=== PATIENT | male | born 1990 | race Caucasian/White ===

== ENCOUNTER 2016-10-21 11:17 | Emergency (ER) | payer OTHER ==
[~2016-10-21] VITALS: Ht 170.2 cm; Wt 65.4 kg
[2016-10-21 11:29] VITALS: Ht 170.2 cm; Wt 65.4 kg
[2016-10-21] MEDS ORDERED: CYAN100020 PO (13:18)
[2016-10-21] MEDS ORDERED: METHYLPREDNISOLONE 125 MG VIAL IV STA (13:53)
[2016-10-21] MEDS ORDERED: methylPREDNISolone 1000 MG in DEXTROSE 5% 250 ML IV SCH (13:53)
[2016-10-21 14:18] LABS: BASO % 0.5 %; BASO ABS # 0.03 K/uL (0-0.2); COMPLETE YES; EOS % 0.3 %; HEMATOCRIT 36.1 % (42-52); IG% 0.2 %; LYMPH % 12.2 %; LYMPH ABS # 0.78 K/uL (1.2-3.4); MEAN CELL VOLUME 75.2 fL (80-100); MEAN CORPUSCULAR HEMOGLOBIN 24.6 pg (25-34); MEAN CORPUSCULAR HGB CONC 32.7 g/dl (32-36); MEAN PLATELET VOLUME 10.1 fL (7.4-10.4); MONO % 5.9 %; NEUT % 80.9 %; PLATELET COUNT 317 K/uL (130-400); WHITE BLOOD COUNT 6.41 K/uL (4.8-10.8)
[2016-10-21 14:32] LABS: CALCIUM 10.1 mg/dl (8.5-10.1); CREATININE 1.1 mg/dl (0.60-1.40); POTASSIUM 4.1 mmol/L (3.5-5.1)
[2016-10-21] MEDS ORDERED: GADAVIST IV PRN (17:15)
--- NOTE | 2016-10-21 17:34 | DIAGNOSTIC IMAGING REPORT ---
BRAIN COMBO FOR MS CLINICAL HISTORY: Weakness. Fatigue. Multiple sclerosis. COMPARISON STUDY: MRI of the brain May 14, 2013. TECHNIQUE: Utilizing 1.5 Nataly magnet and dedicated coil, multiplanar, multi echo imaging of the brain was performed pre and postcontrast administration. Injection of 6.5 cc of Gadavist IV was uneventful. Study was performed as per the multiple sclerosis protocol. FINDINGS: There are no areas of restricted diffusion to suggest acute infarct. No acute intracranial hemorrhage, midline shift or mass effect is present. Ventricular system is normal. Basilar cisterns are patent. There are no extra-axial collections. There has been interval development of multiple T2 hyperintense foci since MRI of May 14, 2013. Multiple new plaques are noted, including a 1.6 cm left frontal lobe plaque in a 1.4 cm right frontal lobe plaque. Note is made of an enhancing plaque measuring approximately 8 mm within the splenium of the corpus callosum. There is also a 5 mm enhancing plaque within the right parietal lobe. Chondral signal is maintained. Orbits are unremarkable. IMPRESSION: Interval development of numerous plaques since MRI of May 14, 2013. Moderate progression of demyelinating disease since prior exam. 8 mm enhancing plaque within the splenium of the corpus callosum and 5 mm enhancing plaque within the right parietal lobe consistent with active demyelination. Electronically signed by: Jhonny Lassiter M.D. 10/21/2016 5:33 PM Dictated Date/Time: 10/21/2016 5:21 PM
[2016-10-21] MEDS ORDERED: METH4PAK PO (18:01)
[2016-10-21 18:26] VITALS: BP 110/61; PULSE 72; TEMP 37.4; O2SAT 100
--- NOTE | 2016-10-21 20:09 | EMERGENCY ROOM VISIT NOTE ---
History Report prepared by Julia: Neo Craven Under the Supervision of: Dr. Rajesh Saxena M.D. First contact with patient: 13:24 Chief Complaint: NEURO SYMPTOMS Stated Complaint: NUMBNESS, FATIGUE/ALL OVER BODY History of Present Illness The patient is a 26 year old male with multiple sclerosis who presents to the Emergency Room with complaints of persistent numbness that started 5 days ago. The patient was sent here from [facility]. He states that he stopped taking his multiple sclerosis medication (Gilenya) in May of 2014 because he did not feel comfortable taking it. The patient says that 5 days ago , he started having numbness in his right foot, and the next day, it progressed to his left foot and hands. The patient notes that it is not complete numbness, but it does not feel "right". He says that the numbness progressed into his abdomen. He adds that he can feel a "tight band" around his abdomen that wraps around his back, which started 5 days ago. The patient notes that he feels like he needs to constantly have a bowel movement, which is exacerbated when he urinates. He denies any urinary symptoms, however. He adds that he has had generalized weakness that is worsened with walking for the past 5 days as well. The patient did have a slight headache last night, which went away. He denies any shortness of breath, chest pain, fevers, or vision problems.The patient says that he was diagnosed with multiple sclerosis in 2007, and the symptom he had when he was diagnosed was left-sided numbness. He was diagnosed with an MRI and a spinal tap. MS does not run in his family. Source of History: patient Onset: 5 days ago Position: hand (bilateral), abdomen, leg (bilateral), foot (bilateral), other Quality: other ("numbness" - not complete numbness) Timing: other (persistent) Associated Symptoms: + headache (has since gone away), + weakness, No fevers , No chest pain, No SOB, No urinary symptoms Note: Associated symptoms: "Tight band" around abdomen that wraps around back. Constant feeling of needing to have bowel movement. Denies vision problems. Review of Systems See HPI for pertinent positives & negatives. A total of 10 systems reviewed and were otherwise negative. Past Medical & Surgical Medical Problems: (1) Multiple sclerosis Family History No pertinent family history Social History Smoking Status: Never Smoker Smokeless Tobacco Use: No Alcohol Use: none Marital Status: single Housing Status: lives alone Occupation Status: student Current/Historical Medications Scheduled Cyanocobalamin (Vitamin B12), 1,000 MCG PO DAILY Methylprednisolone (Medrol Dosepak), 1 PKT PO UD Allergies Coded Allergies: No Known Allergies (Unverified , 10/21/16) Physical Exam Vital Signs Date Time Temp Pulse Resp B/P (MAP) Pulse Ox O2 Delivery O2 Flow Rate FiO2 10/21/16 18:26 37.4 72 18 110/61 100 10/21/16 17:09 72 18 110/61 100 Room Air 10/21/16 15:16 76 18 109/58 100 Room Air 10/21/16 13:29 114/66 10/21/16 11:29 37.4 108 20 113/73 100 Room Air Physical Exam Constitutional: Vital signs reviewed. Eyes: Pupils are equal round reactive to light. Conjunctiva are noninjected. ENT: Pharynx is clear without erythema or exudate. Mucous membranes are moist. Neck supple without meningeal signs. Respiratory: Clear to auscultation bilaterally. Breath sounds are equal bilaterally. Cardiovascular: Regular rate and rhythm. No rubs or gallops. GI: Soft, nondistended and nontender. Bowel sounds are present. Musculoskeletal: No peripheral edema. No lower extremity tenderness. Integumentary: No cyanosis. Neurological: The patient is awake and alert. Cranial nerves II-XII are intact. Motor is 5 out of 5 all extremities. Sensation is intact to light touch all extremities. Dysesthesia to lower trunk, lower extremities bilaterally and finger tips. Psychiatric: Normal affect. Medical Decision & Procedures ER Provider Diagnostic Interpretation: MRI results as stated below per my review and radiologist interpretation. BRAIN COMBO FOR MS CLINICAL HISTORY: Weakness. Fatigue. Multiple sclerosis. COMPARISON STUDY: MRI of the brain May 14, 2013. TECHNIQUE: Utilizing 1.5 Nataly magnet and dedicated coil, multiplanar, multi echo imaging of the brain was performed pre and postcontrast administration. Injection of 6.5 cc of Gadavist IV was uneventful. Study was performed as per the multiple sclerosis protocol. FINDINGS: There are no areas of restricted diffusion to suggest acute infarct. No acute intracranial hemorrhage, midline shift or mass effect is present. Ventricular system is normal. Basilar cisterns are patent. There are no extra-axial collections. There has been interval development of multiple T2 hyperintense foci since MRI of May 14, 2013. Multiple new plaques are noted, including a 1.6 cm left frontal lobe plaque in a 1.4 cm right frontal lobe plaque. Note is made of an enhancing plaque measuring approximately 8 mm within the splenium of the corpus callosum. There is also a 5 mm enhancing plaque within the right parietal lobe. Chondral signal is maintained. Orbits are unremarkable. IMPRESSION: Interval development of numerous plaques since MRI of May 14, 2013. Moderate progression of demyelinating disease since prior exam. 8 mm enhancing plaque within the splenium of the corpus callosum and 5 mm enhancing plaque within the right parietal lobe consistent with active demyelination. Electronically signed by: Jhonny Lassiter M.D. 10/21/2016 5:33 PM Dictated Date/Time: 10/21/2016 5:21 PM Laboratory Results 10/21/16 14:00 Red Blood Count 4.80, Mean Corpuscular Volume 75.2, Mean Corpuscular Hemoglobin 24.6, Mean Corpuscular Hemoglobin Concent 32.7, Mean Platelet Volume 10.1, Neutrophils (%) (Auto) 80.9, Lymphocytes (%) (Auto) 12.2, Monocytes (%) (Auto) 5.9, Eosinophils (%) (Auto) 0.3, Basophils (%) (Auto) 0.5, Neutrophils # (Auto) 5.19, Lymphocytes # (Auto) 0.78, Monocytes # (Auto) 0.38, Eosinophils # (Auto) 0.02, Basophils # (Auto) 0.03 10/21/16 14:00 Test 10/21/16 14:00 White Blood Count 6.41 K/uL (4.8-10.8) Red Blood Count 4.80 M/uL (4.7-6.1) Hemoglobin 11.8 g/dL (14.0-18.0) Hematocrit 36.1 % (42-52) Mean Corpuscular Volume 75.2 fL (80-100) Mean Corpuscular Hemoglobin 24.6 pg (25-34) Mean Corpuscular Hemoglobin Concent 32.7 g/dl (32-36) Platelet Count 317 K/uL (130-400) Mean Platelet Volume 10.1 fL (7.4-10.4) Neutrophils (%) (Auto) 80.9 % Lymphocytes (%) (Auto) 12.2 % Monocytes (%) (Auto) 5.9 % Eosinophils (%) (Auto) 0.3 % Basophils (%) (Auto) 0.5 % Neutrophils # (Auto) 5.19 K/uL (1.4-6.5) Lymphocytes # (Auto) 0.78 K/uL (1.2-3.4) Monocytes # (Auto) 0.38 K/uL (0.11-0.59) Eosinophils # (Auto) 0.02 K/uL (0-0.5) Basophils # (Auto) 0.03 K/uL (0-0.2) RDW Standard Deviation 37.2 fL (36.4-46.3) RDW Coefficient of Variation 13.4 % (11.5-14.5) Immature Granulocyte % (Auto) 0.2 % Immature Granulocyte # (Auto) 0.01 K/uL (0.00-0.02) Anion Gap 12.0 mmol/L (3-11) Est Creatinine Clear Calc Drug Dose 92.5 ml/min Estimated GFR () 105.3 Estimated GFR (Non- 90.9 BUN/Creatinine Ratio 10.0 (10-20) Calcium Level 10.1 mg/dl (8.5-10.1) Total Bilirubin 1.8 mg/dl (0.2-1) Direct Bilirubin 0.3 mg/dl (0-0.2) Aspartate Amino Transf (AST/SGOT) 17 U/L (15-37) Alanine Aminotransferase (ALT/SGPT) 20 U/L (12-78) Alkaline Phosphatase 76 U/L (45-117) Total Protein 8.6 gm/dl (6.4-8.2) Albumin 4.9 gm/dl (3.4-5.0) Laboratory results as reviewed by me. Medications Administered Medications (Trade) Dose Ordered Sig/Héctor Route Start Time Stop Time Status Last Admin Dose Admin Methylprednisolone Sodium Succinate 1000 mg/Dextrose 266 ml @ 266 mls/hr TODAY@1353 IV 10/21/16 13:53 10/21/16 14:52 DC 10/21/16 15:13 266 MLS/HR ECG Indication: weakness Rate (beats per minute): 93 Rhythm: normal sinus Findings: no acute ischemic change, no ectopy ED Course 1328: The patient was evaluated in room B5. A complete history and physical exam was performed. 1352: I discussed the patient with Dr. Sydni LORD neurology - he recommends getting baseline labs and starting the patient on a gram of Solu-Medrol and send the patient home with a Medrol dose pack. Dr. Troy will see the patient in the office to reconsider starting medication. He notes that the patient has a prior history of abnormal LFT's with a negative hepatitis workup. 1353: Ordered Methylprednisolone Sodium Succinate 1000 mg/Dextrose 266 ml @ 266 mls/hr IV, Solu-Medrol IV 1000 mg IV. 1529: The patient's point of care troponin is .01. I reevaluated the patient and discussed the plan with him. He is currently getting Solu-Medrol. Dr. Troy wanted an MRI of the brain, so I spoke to the patient and electronic warfare technician about this and the electronic warfare technician said the patient would be able to be fit in. 1757: I discussed the MRI results with Dr. Sydni LORD neurology - he recommends giving a Medrol dose pack and following up in the office. 1800: I reevaluated and discussed the test results with the patient. The patient verbally expressed understanding and agreement with the treatment plan. The patient will be discharged. Medical Decision This is a 26-year-old male with a history of multiple sclerosis presenting with dysesthesia to his extremities and trunk. Differential diagnosis includes MS exacerbation, intracranial mass, intracranial hemorrhage, metabolic derangement , MS Hug. I did perform a limited focused review of portions of the patient's old chart on the electronic medical record. The patient has had no recent pertinent visits to this hospital. Blood Pressure Screening: Patient was found to have normal blood pressure on screening and does not require follow-up. Medication Reconciliation: I attest that I have personally reviewed the patient' s current medication list. I did evaluate the patient as noted above. Patient is presenting with numbness to his extremities. He has a history of MS. He also complains of a constricting band around his abdomen. This is likely an MS hug. IV access was established. I did order and personally review the patient's 12-lead EKG as described above. I did order and review the patient's blood work as noted in the electronic medical record. He does have abnormal LFTs and some mild anemia. I did discuss the case with Dr. Troy who previously took care of the patient. He states that in the past he has had problems with abnormal LFTs. He recommended the patient get a gram of Solu-Medrol and be sent home with a Medrol Dosepak. He did request that we get an MRI of his brain before he goes. I did discuss the test results with the patient. I did treat him with Solu- Medrol 1 g IV. I did order an MRI of the brain. I did review the images myself as well as the radiology report as described above. He does have new plaques consistent with progressive multiple sclerosis. I did discuss the MRI results with the patient and Dr. Troy. He was discharged with a Medrol Dosepak and will follow up with Dr. Troy in the office. Consults Time Called: 1350 Consulting Physician: Dr. Sydni LORD neurology Returned Call: [phone] I discussed the patient with Dr. Sydni LORD neurology - he recommends getting baseline labs and starting the patient on a gram of Solu-Medrol and send the patient home with a Medrol dose pack. Dr. Troy will see the patient in the office to reconsider starting medication. He notes that the patient has a prior history of abnormal LFT's with a negative hepatitis workup. Additional Consults: Time Called: [id number] Consulted Physician: Dr. Sydni LORD neurology Returned Call: [phone] Additional Comments: I discussed the MRI results with Dr. Sydni LORD neurology - he recommends giving a Medrol dose pack and following up in the office. Impression Primary Impression: Multiple sclerosis exacerbation Additional Impressions: Anemia, unspecified Abnormal LFTs Scribe Attestation The scribe's documentation has been prepared under my direct and personally reviewed by me in its entirety. I confirm that the note above accurately reflects all work, treatment, procedures, and medical decision making performed by me. Departure Information Dispostion Home / Self-Care Prescriptions Methylprednisolone (MEDROL DOSEPAK) 4 Mg David 1 PKT PO UD for 6 Days, #1 PKT Prov: Rajesh Saxena M.D. 10/21/16 Referrals [facility] (PCP) Roger Troy M.D. Forms HOME CARE DOCUMENTATION FORM, IMPORTANT VISIT INFORMATION, WORK / SCHOOL INSTRUCTIONS Patient Instructions Multiple Sclerosis Dc, My [facility] Additional Instructions You have been examined and treated today on an emergency basis only. This is not a substitute for, or an effort to provide, complete comprehensive medical care. It is impossible to recognize and treat all injuries or illnesses in a single emergency department visit. It is therefore important that you follow up closely with Dr. Troy. Call as soon as possible for an appointment. Return for worsening symptoms or if you develop fever, vomiting, weakness, trouble with her vision or any other concerning symptoms. Problem Qualifiers
== END 2016-10-21 18:28 | disposition home or self-care (01) ==
LOC: C.EDB 11:20
DX: G35 Multiple sclerosis (principal); D64.9 Anemia, unspecified; R94.5 Abnormal results of liver function studies

== ENCOUNTER 2016-10-24 14:01 | Emergency (ER) | payer OTHER ==
[~2016-10-24] VITALS: Ht 170.2 cm; Wt 62.7 kg
[~2016-10-24 14:01] MED LIST: CYAN100020 PO; METH4PAK PO
[2016-10-24 14:02] VITALS: TEMP 37.2; Ht 170.2 cm; Wt 62.7 kg
[2016-10-24] MEDS ORDERED: SODIUM CHLORIDE 0.9% 500ML 500 ML IV STA (14:16)
[2016-10-24] MEDS ORDERED: METHYLPREDNISOLONE 125 MG VIAL IV STA (14:26)
--- NOTE | 2016-10-24 14:49 | EMERGENCY ROOM VISIT NOTE ---
History Report prepared by Julia: Augustina Ba Under the Supervision of: Dr. Mario Gerardo M.D. First contact with patient: 14:09 Chief Complaint: GI ASSESSMENT Stated Complaint: NUMBNESS, FATIGUE Nursing Triage Summary: having flare up of MS. Feeling back pain and abdominal pain History of Present Illness The patient is a 26 year old male who presents to the Emergency Room with complaints persistent numbness that started 1.5 weeks ago. The patient was evaluated in the ED 3 days ago for fatigue and numbness all over his body. His lab workup was unremarkable and his brain MRI revealed increased MS plaques with active demyelination. He was given IV Solu-Medrol and was prescribe a Medrol dose pack which he is still taking. The patient has not seen or talked to Dr. Troy - Neurology since that visit. The patient states that he talked to a nurse at Dr. Troy's office who recommended coming into the ED if he felt it was necessary. The patient states that his symptoms feel the same as they did 3 days ago and he adds that he actually felt better 2 days ago but then his symptoms worsened again. The patient states that his hands, especially fingers, and his toes are numb. He states that he can feel them but there is a tingling sensation in them. The patient is also experiencing trouble controlling his fingers and states that it is difficult to write and type. He states that he is also experiencing balance problems. He states that his torso and legs are also numb and it feels like there is a "tight band" wrapped around his chest and back. He denies fevers, cough, and congestion. The patient was diagnosed with MS in 2007 and is not on any regular medications for MS. The patient states that he has never experienced symptoms like this in the past. He states that in 2008 the left side of his body was numb but it wasn't like his current symptoms. Source of History: patient Onset: 1.5 weeks ago Position: hand (bilateral), leg, toe(s), other (torso) Quality: numbness Timing: other (persistent) Modifying Factors (Relieving): other (IV Solu-Medrol) Associated Symptoms: No fevers, No cough Note: trouble controlling fingers, balance problems, feeling of a "tight band" wrapped around his chest and back, no congestion Review of Systems See HPI for pertinent positives & negatives. A total of 10 systems reviewed and were otherwise negative. Past Medical & Surgical Medical Problems: (1) Multiple sclerosis Family History No pertinent family history Social History Smoking Status: Never Smoker Alcohol Use: none Marital Status: single Housing Status: lives alone Occupation Status: student Current/Historical Medications Scheduled Cyanocobalamin (Vitamin B12), 1,000 MCG PO DAILY Methylprednisolone (Medrol Dosepak), 1 PKT PO UD Allergies Coded Allergies: No Known Allergies (Unverified , 10/24/16) Physical Exam Vital Signs Date Time Temp Pulse Resp B/P (MAP) Pulse Ox O2 Delivery O2 Flow Rate FiO2 10/24/16 14:02 37.2 104 18 119/77 97 Physical Exam GENERAL: Patient is in no acute distress. HEENT: No acute trauma, normocephalic atraumatic, mucous membranes moist, no nasal congestion, no scleral icterus. NECK: No stridor, no adenopathy, no meningismus, trachea is midline. LUNGS: Clear to auscultation bilaterally, no wheeze, no rhonchi, breath sounds equal. HEART: Mildly tachycardic, regular rhythm, no murmurs. ABDOMEN: Soft, nontender, bowel sounds positive, no hernias, no peritonitis. EXTREMITIES: No cyanosis or edema, full range of motion of all the joints without pain or difficulty, no signs for acute trauma. NEUROLOGIC: Oriented x 3, no acute motor or sensory deficits, no focal weakness , no pronator drift or cerebellar dysfunction, no speech slur or facial droop. SKIN: No rash, no jaundice, no diaphoresis. Medical Decision & Procedures Laboratory Results 10/24/16 14:40 10/24/16 14:40 Test 10/24/16 14:40 Red Blood Count 5.26 M/uL (4.7-6.1) Mean Corpuscular Volume 75.7 fL (80-100) Mean Corpuscular Hemoglobin 23.2 pg (25-34) Mean Corpuscular Hemoglobin Concent 30.7 g/dl (32-36) RDW Standard Deviation 36.5 fL (36.4-46.3) RDW Coefficient of Variation 13.4 % (11.5-14.5) Mean Platelet Volume 10.3 fL (7.4-10.4) Anion Gap 11.0 mmol/L (3-11) Est Creatinine Clear Calc Drug Dose 81.3 ml/min Estimated GFR () 94.8 Estimated GFR (Non- 81.8 BUN/Creatinine Ratio 11.3 (10-20) Calcium Level 10.1 mg/dl (8.5-10.1) Magnesium Level 2.5 mg/dl (1.8-2.4) Total Bilirubin 1.4 mg/dl (0.2-1) Aspartate Amino Transf (AST/SGOT) 17 U/L (15-37) Alanine Aminotransferase (ALT/SGPT) 19 U/L (12-78) Alkaline Phosphatase 69 U/L (45-117) Total Protein 8.7 gm/dl (6.4-8.2) Albumin 5.2 gm/dl (3.4-5.0) Globulin 3.5 gm/dl (2.5-4.0) Albumin/Globulin Ratio 1.5 (0.9-2) Thyroid Stimulating Hormone (TSH) 1.700 uIu/ml (0.300-4.500) Urine dip shows trace ketones without signs of infection. Laboratory results reviewed by me. Medications Administered Medications (Trade) Dose Ordered Sig/Héctor Route Start Time Stop Time Status Last Admin Dose Admin Sodium Chloride 500 ml @ 999 mls/hr Q31M STAT IV 10/24/16 14:16 10/24/16 14:46 DC 10/24/16 14:45 999 MLS/HR Methylprednisolone Sodium Succinate (Solu-Medrol IV) 1,000 mg NOW STAT IV 10/24/16 14:26 10/24/16 14:28 DC 10/24/16 14:45 1,000 MG ED Course 1412: The patient was evaluated in room A12. A complete history and physical exam was performed. 1416: Ordered Sodium Chloride 500 ml @ 999 mls/hr IV 1425: Discussed the patient's case with Dr. Troy - Neurology. He recommended giving the patient 1 gram of IV Solu-Medrol now and then he will contact the patient to setup more doses as an outpatient. 1426: Ordered Solu-Medrol 1000 mg IV 1428: I updated the patient on my conversation with Dr. Troy. 1548: Reevaluated the patient. He is doing well. Discussed results and discharge instructions: he verbalized understanding and agreement. The patient is ready for discharge. Medical Decision Differential diagnoses considered include MS flare, dehydration, electrolyte imbalance, anemia, thyroid disease, infection. Medication Reconciliation: I attest that I have personally reviewed the patient' s current medication list. Blood Pressure Screening: Patient was found to have normal blood pressure on screening and does not require follow-up. There is no leukocytosis. The patient is mildly anemic but the number is not near critical. No significant electrolyte abnormality or kidney failure. The patient appears to be in a euthyroid state. Urine dip does not show infection. On exam, there are no focal neurologic deficits. The patient is not febrile. He has had no infection symptomatology. The patient was here recently and had a brain MRI demonstrating active MS plaques. The patient was feeling better after his initial dose of IV Solu- Medrol but now seems to again be feeling worse. I discussed his case with the neurologist property utilization officer. The patient did receive a dose of IV Solu-Medrol, 1000 mg. He is going to be discharged to have outpatient Solu-Medrol for the next few days. His IV was left in place for this medication administration. During his ER stay, he also was given a 500 mL saline bolus. The patient was reassured by this testing. He is being discharged. I do believe he is having an MS exacerbation. Consults Time Called: 1416 Consulting Physician: Dr. Sydni Rutherford Neurology Returned Call: [phone] Discussed the patient's case with Dr. Troy - Neurology. He recommended giving the patient 1 gram of IV Solu-Medrol now and then he will contact the patient to setup more doses as an outpatient. Impression Primary Impression: Multiple sclerosis exacerbation Scribe Attestation The scribe's documentation has been prepared under my direction and personally reviewed by me in its entirety. I confirm that the note above accurately reflects all work, treatment, procedures, and medical decision making performed by me. Departure Information Dispostion Home / Self-Care Referrals [facility] (PCP) Forms HOME CARE DOCUMENTATION FORM, IMPORTANT VISIT INFORMATION Patient Instructions My [facility] Additional Instructions you will be called for oupt doses of IV solumedrol you should call Dr. Troy's office to ensure you are being scheduled for the doses of Solu-medrol return if worsening lab testing today was all ok
[2016-10-24 15:13] LABS: HEMATOCRIT 39.8 % (42-52); MEAN CELL VOLUME 75.7 fL (80-100); MEAN CORPUSCULAR HEMOGLOBIN 23.2 pg (25-34); MEAN CORPUSCULAR HGB CONC 30.7 g/dl (32-36); MEAN PLATELET VOLUME 10.3 fL (7.4-10.4); PLATELET COUNT 372 K/uL (130-400); RED BLOOD COUNT 5.26 M/uL (4.7-6.1); WHITE BLOOD COUNT 7.91 K/uL (4.8-10.8)
[2016-10-24 15:28] LABS: BUN/CREATININE RATIO 11.3 (10-20); CALCIUM 10.1 mg/dl (8.5-10.1); CREATININE 1.2 mg/dl (0.60-1.40); MAGNESIUM 2.5 mg/dl (1.8-2.4); POTASSIUM 3.8 mmol/L (3.5-5.1)
[2016-10-24 15:39] LABS: ALB/GLOB RATIO 1.5 (0.9-2); THYROID STIMULATING HORMONE 1.7 uIu/ml (0.300-4.500)
[2016-10-24 16:13] VITALS: BP 111/66; PULSE 69; O2SAT 98
== END 2016-10-24 16:17 | disposition home or self-care (01) ==
LOC: C.EDB 14:02 → C.EDA 16:17
DX: G35 Multiple sclerosis (principal); Z79.52 Long term (current) use of systemic steroids